=== PATIENT | female | born 1995 | race African-American/Black ===

== ENCOUNTER 2018-02-02 18:54 | Emergency (ER) | payer OTHER ==
[~2018-02-02] VITALS: Ht 172.7 cm; Wt 111.1 kg
[2018-02-02] MEDS ORDERED: Norco 5mg/325mg tab ORAL ONE (19:15)
[2018-02-02] MEDS ORDERED: Bacitracin Oint UD TOPIC ONE (20:15)
--- NOTE | 2018-02-02 20:22 | Emergency Room Report ---
History of Present Illness General Chief Complaint: Lower Extremity Injury Source: Patient Present Illness HPI 22-year-old female presents to the emergency department complaining of 8 out of 10 in severity pain to the right lateral ankle in addition to anterior left knee status post mechanical trip and fall. Patient reports she has several abrasions as well 1 prominently on the left anterior knee and a small one on the right elbow as well as the right side of her face. Denies loss of consciousness she denies nausea vomiting she denies midline neck or back pain. Patient reports pain is exacerbated upon weight-bearing or attempts to walk. Denies numbness tingling or loss of sensation or gross motor movements of the extremities, incontinence of bowel or bladder. Denies CP, Palpitations, LOC, AMS , dizziness, Changes in Vision, weakness or a sudden severe HARDEN. pt. is also requesting a refill of her albuterol inhaler. Allergies: Coded Allergies: No Known Allergies (Unverified , 02/02/18) Patient History Past Medical History: see triage record Past Surgical History: none Pertinent Family History: none Last Menstrual Period: 01/26/2018 Now: No Reviewed Nursing Documentation: PMH: Agreed; PSxH: Agreed Nursing Documentation-PMH Past Medical History: No History, Except For Hx Asthma: Yes Review of Systems All Other Systems: negative except mentioned in HPI Physical Exam Vital Signs Date Time Temp Pulse Resp B/P (MAP) Pulse Ox O2 Delivery O2 Flow Rate FiO2 02/02/18 19:09 97.8 100 19 102/66 95 Room Air 97.9 Sp02 EP Interpretation: reviewed, normal General Appearance: no apparent distress, alert, GCS 15, non-toxic Head: normocephalic, atraumatic Eyes: bilateral eye normal inspection, bilateral eye PERRL ENT: hearing grossly normal, normal voice Neck: full range of motion Respiratory: lungs clear, normal breath sounds, speaking full sentences Cardiovascular #1: regular rate, rhythm, normal capillary refill Cardiovascular #2: 2+ dorsalis pedis (R) Musculoskeletal: back normal, gait/station normal - compensatory due to pain, but steady. , normal range of motion, swelling - right ankle, tender - lateral right ankle, ttp ant left knee. no increased laxity noted, no bruises. Neurologic: alert, oriented x3, responsive, motor strength/tone normal, sensory intact, speech normal, grossly normal Psychiatric: judgement/insight normal Skin: normal color, no rash, warm/dry, well hydrated, abrasions - ant. left knee, right cheekbone Lymphatic: no adenopathy Medical Decision Making FLORINDA Attestation Dr. Rosado is my supervising Physician whom patient management has been discussed with. Diagnostic Impression: Primary Impression: Right ankle sprain Qualified Codes: S93.401A - Sprain of unspecified ligament of right ankle, initial encounter Additional Impressions: Contusion of knee, left Qualified Codes: S80.02XA - Contusion of left knee, initial encounter Abrasion ER Course 22-year-old female presents to the emergency department complaining of 8 out of 10 in severity pain to the right lateral ankle in addition to anterior left knee status post mechanical trip and fall. Patient reports she has several abrasions as well 1 prominently on the left anterior knee and a small one on the right elbow as well as the right side of her face. Denies loss of consciousness she denies nausea vomiting she denies midline neck or back pain. Patient reports pain is exacerbated upon weight-bearing or attempts to walk. Denies numbness tingling or loss of sensation or gross motor movements of the extremities, incontinence of bowel or bladder. Denies CP, Palpitations, LOC, AMS , dizziness, Changes in Vision, weakness or a sudden severe HARDEN. pt. is also requesting a refill of her albuterol inhaler. UTD with tetanus. Ddx considered but are not limited to Fracture, dislocation, contusion, Sprain/ Strain/Spasm just to name a few. Vital signs: are WNL, pt. is afebrile H&PE are most consistent with musculoskeletal injury will perform imaging to r/ o fractures/dislocations. ORDERS: - X-ray Right ankle 3 views and Left knee 3 views - negative for fx, Dislocation, or significant soft tissue injury, per preliminary read in ED, and signed by FLORINDA Bae, my supervising physician has reviewed, and agrees with my interpretation. ED INTERVENTIONS: - [place] PO - Grant wrap applied to the right ankle by radio television technical director. Pt. remains neurovascularly intact. Grant wrap applied to the left knee by radio television technical director. Pt. remains neurovascularly intact.Grant wrap applied by radio television technical director. Pt. remains neurovascularly intact. -Patient is provided with crutches and instructed on their use DISCHARGE: At this time pt. is stable for d/c to home. Will provide printed patient care instructions, and any necessary prescriptions. Care plan and follow up instructions have been discussed with the patient prior to discharge. Other X-Ray Diagnostic Results Other X-Ray Diagnostic Results #1: X-Ray ordered: Right ankle # of Views/Limited Vs Complete: 3 View Indication: Pain EP Interpretation: Yes PA Xray: Interpretation reviewed, by supervising MD, and agrees with findings. Interpretation: no dislocation, no soft tissue swelling Impression: No acute disease Other X-Ray Diagnostic Results #2: X-Ray ordered: Left knee # of Views/Limited Vs Complete: 3 View Indication: Pain EP Interpretation: Yes PA Xray: Interpretation reviewed, by supervising MD, and agrees with findings. Interpretation: no dislocation, no soft tissue swelling, no fractures Impression: No acute disease Electronically Signed by: Najma Bae PA-C Last Vital Signs Date Time Temp Pulse Resp B/P (MAP) Pulse Ox O2 Delivery O2 Flow Rate FiO2 02/02/18 19:23 97.8 02/02/18 19:09 100 19 102/66 95 Room Air Disposition: HOME, SELF-CARE Condition: Stable Scripts Albuterol Sulfate* (ALBUTEROL SULFATE MDI*) 8.5 Gm Hfa.aer.ad 2 PUFF INH Q3H, #1 INH 0 Refills Prov: Najma Bae 02/02/18 Ibuprofen* (MOTRIN*) 800 Mg Tablet 800 MG ORAL THREE TIMES A DAY, #20 TAB 0 Refills Prov: Najma Bae 02/02/18 Departure Forms: Return to Work Return to Work Date: Feb 04, 2018 Work Restrictions: No Prolonged Standing Other Restrictions: may return sooner if symptoms have resolved. Return to Full Activity: Feb 04, 2018 Patient Instructions: Ankle Sprain, Contusion, [id number] Additional Instructions: Take medications as directed. Follow up with a Primary Care Provider in 3-5 days, even if your symptoms have resolved. --Please review list of primary care clinics, if you do not already have a primary care provider Return sooner to ED if new symptoms occur, or current symptoms become worse. - Please note that this Emergency Department Report was dictated using [employer] oiling truck driver technology software, occasionally this can lead to erroneous entry secondary to interpretation by the dictation equipment. Najma Bae Feb 02, 2018 20:22
[2018-02-02] MEDS ORDERED: IBUPROFEN800 MG ORAL (20:23)
[2018-02-02] MEDS ORDERED: ALBUTEROL SULF8.5 GM INH (20:23)
[2018-02-02 21:10] VITALS: BP 102/66
--- NOTE | 2018-02-03 10:39 | Diagnostic Imaging Report ---
Indication: Knee Pain 3 views of the left knee were obtained. Findings: No acute fracture, malalignment, or joint effusion are identified. Joint space is relatively well-maintained. Impression: Negative for acute injury
--- NOTE | 2018-02-03 10:40 | Diagnostic Imaging Report ---
Indication: Pain right ankle ankle pain/trauma Comparison: None Findings: 3 views of the right ankle obtained. No acute fracture, malalignment, periostitis, or osteochondral defects are identified. Soft tissues are unremarkable. Impression: Negative examination
== END 2018-02-02 22:05 | disposition home or self-care (01) ==
LOC: EMR 21:13
DX: S93.401A Sprain of unspecified ligament of right ankle, initial encounter (principal); S80.02XA Contusion of left knee, initial encounter; W01.0XXA Fall on same level from slipping, tripping and stumbling without subsequent striking against object, initial encounter; Y93.9 Activity, unspecified; Y92.9 Unspecified place or not applicable; J45.909 Unspecified asthma, uncomplicated
CPT/HCPCS: 99284